=== PATIENT | male | born 1945 | race Caucasian/White ===

== ENCOUNTER 2022-12-16 07:38 | Outpatient (CLI) | payer OTHER, SELFPAY ==
--- OUTSIDE RECORDS SUMMARY | 2022-12-16 07:40 | XMS_ITS | Continuity of Care Document ---
Author Name Unknown Organization Z [facility] Address [address] [place] [address] Phone Care Team Providers Care School Manager Name Role Phone TCSC, Miscellaneous Unavailable Unavailable Advance Directives Directive Yes / No Effective Date File Name No Information Encounters Encounter Description Practice Location Reason(s) For Visit Diagnoses Date Provider Providers Copied on Encounter Z [facility], [address], [place], [address], [place] tel:[phone] [facility] [place] No Information [facility] Miscellan eous. [address], [address], [place], [place], [id number] , [place]. tel:[phone] Family History Family Member Type Diagnosis Age At Onset No Information Payers Payer name Insurance type Covered libertarian ID Authoriza tion(s) No Information Social History Type Description Quantity Date Captured Comments Sex Male Smoking Status No Information Chief Complaint And Reason For Visit No Information Reason For Referral Reason For Referral No Information History Of Present Illness Encounter Date Complaint History Of Prese nt Illness No Information Functional Status Date Functional Assessmen t No Information Instructions Date Instruction Additional Infor mation No Information Assessments Type Assessment Date No Information Patient Care Teams Name Effective Dates (start - stop) Status Members No Information
--- NOTE | 2022-12-16 09:00 | CRLHL7_ITS ---
For Patients: As a result of the Cures Act, medical imaging exams and procedure reports are released immediately into your electronic medical record. You may view this report before your referring provider. If you have questions, please contact your health care provider. INDICATION: Lung cancer screening. History of smoking. High risk patient with greater than 20 pack-year smoking history. TECHNIQUE: Low-dose lung cancer screening non-contrast CT chest. Dose reduction techniques were used. COMPARISON: None. FINDINGS: NODULES: 2 millimeter calcified granuloma in the left lung apex. Subpleural ill-defined nodular density left upper lobe measuring 5.3 millimeters, 3/49. Other scattered tiny granulomas are present bilaterally measuring 1 millimeter or less. Small area of focal scarring adjacent to the right major fissure right lower lobe. LUNGS AND PLEURA: COPD/emphysema. MEDIASTINUM: No adenopathy. Atherosclerotic changes. CORONARY ARTERY CALCIFICATION: Present. LIMITED UPPER ABDOMEN: Atherosclerotic changes. MUSCULOSKELETAL: Severe degenerative changes lower cervical spine. There is no fracture IMPRESSION: Bilateral pulmonary nodules. 5.3 millimeters subpleural ill-defined a nodular density left upper lobe. LUNG-RADS CATEGORY: 2: Benign. RADIOLOGIST RECOMMENDATION: Continue annual screening with low-dose CT chest in 12 months. Please note that all CT scans at this facility use dose modulation, iterative reconstruction, and/or weight-based dosing when appropriate to reduce radiation dose to as low as reasonably achievable. Dictated by Elmo Buckley MD @ 12/17/2022 12:04:09 PM (Electronically Signed)
== END 2022-12-16 07:39 | disposition home or self-care (01) ==
LOC: CT 07:39
PROVIDERS: PCP Nurse Practitioner Family; Visit Provider Nurse Practitioner Family
DX: Z12.2 Encounter for screening for malignant neoplasm of respiratory organs (principal); F17.200 Nicotine dependence, unspecified, uncomplicated
CPT/HCPCS: 71271

== ENCOUNTER 2023-12-26 07:26 | Outpatient (CLI) | payer OTHER, SELFPAY ==
--- OUTSIDE RECORDS SUMMARY | 2023-12-26 07:29 | XMS_ITS | Referral Summary ---
Author Organization [facility] Address [address] [place] [address] Care Team Providers Care Sample Paster Name Role Phone Elsewhere, Pcp Primary Care Provider Unavailabl e Source Comments Patient records contain information from all sites at [facility]. For routine questions regarding patient records, call [phone] during business hours, M-F 8:00 AM - 5:00 PM Central Time. 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 3 Active atorvastatin (for_LIPITOR) 80 mg tablet Take 80 mg by mouth daily. Active metoprolol tartrate (for_LOPRESSOR) 50 mg tablet Take 50 mg by mouth 2 (two) times a day. Take 1/2 tab twice a day Active clopidogrel (for_PLAVIX) 75 mg tablet Take 75 mg by mouth daily. Active cholecalciferol (for_VITAMIN D3) 1,000 Unit tablet Take 1,000 Units by mouth daily. Active fluticasone propion-salmeter oL (Advair Diskus) 100-50 mcg/actuation diskus inhaler Inhale 1 puff 2 (two) times a day. 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 22 g 4 Active predniSONE (DELTASONE) 20 mg tablet Take 2 tablets (40 mg total) by mouth daily. 10 tablet 4 Active doxycycline monohydrate (MONODOX) 100 mg capsule Take 1 capsule (100 mg total) by mouth 2 (two) times a day. 28 capsule 4 Active latanoprost 0.005 % drops, emulsion Administer 1 drop into both eyes at bedtime. 3 Active dorzolamide-naz loL (COSOPT) 22.3-6.8 mg/mL ophthalmic solution Administer 1 drop into both eyes 2 (two) times a day. 3 Active nicotine polacrilex (NICORETTE) 2 mg gum Chew 2 mg as needed for smoking cessation. 3 Active sennosides (SENOKOT) 8.6 mg tablet Take 2 tablets by mouth 2 (two) times a day. 8 Active atorvastatin (LIPITOR) 80 mg tablet Take 80 mg by mouth daily. 3 Active cholecalciferol, vitamin D3, 25 mcg (1,000 Unit) tablet Take 25 mcg by mouth daily. 8 Active metoprolol tartrate (LOPRESSOR) 50 mg tablet Take 25 mg by mouth 2 (two) times a day. 3 Active Active Problems No known active problems Immunizations Name Administration Dates Next Due SARS-COV-2 (COVID-19) - PFIZ ER (Discontinued)(12 years or older) 02/11/2021 Social History Tobacco Use Types Packs/Day Years Used Date Smoking Tobacco: Every Day Cigarettes 0.5 25 Smokeless Tobacco: Never Tobacco Cessation:Ready to Q uit: No; Counseling Given: Yes Alcohol Use Standard Drinks/Week Comments Yes 3 (1 standard drink = 0.6 oz pur e alcohol) Nutrition Answer Date Recorded Nutrition: EVOO Fat Source 13 10/29 Nutrition: Servings of Fruits/Vegetables per Day Not on file 10/30/2019 Dental Answer Date Recorded Dental: Regular Dentist Unknown 04/15/19 21 Sex and Gender Information Value Date Recorded Sex Assigned at Not on file 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 Gender Identity Not on file Sexual Orientation Not on file Last Filed Vital Signs Vital Sign Reading Time Taken Comments Blood Pressure 138/78 07/06/2023 9:10 PM CDT Pulse 76 07/06/2023 9:10 PM CDT Temperature 36.7 ??C (98.1 ??F) 07/06/2023 9:10 PM CD T Respiratory Rate 18 07/06/2023 9:10 PM CDT Oxygen Saturation 97% 07/06/2023 9:10 PM CDT Inhaled Oxygen Concentration - - Weight 54 kg (119 lb 0.8 oz) 07/06/2023 9:10 PM CDT Height 172.7 cm (5' 8) 12/18/2016 11:17 PM CDT Body Mass Index 18.1 12/18/2016 11:17 PM CDT Plan of Treatment Not on file Insurance [employer] Care Teams Sample Paster Relationship Specialty Start Date End Date Elsewhere, Pcp PCP - General Internal Medicine 12/18/16
--- OUTSIDE RECORDS SUMMARY | 2023-12-26 07:29 | XMS_ITS | Clinical Summary ---
Author Organization [facility] Address [address] [place] [address] Care Team Providers Care Skip Operator Name Role Phone Elsewhere, Pcp Primary Care Provider Unavailabl e Source Comments Patient records contain information from all sites at [facility]. For routine questions regarding patient records, call [phone] during business hours, M-F 8:00 AM - 5:00 PM Central Time. Record requests for emergency care only can be directed to [phone] at any time.[facility] Allergies Active Allergy Reactions Criticality Noted Date [...] day. 180 each 3 01/26/2023 12:[address] MAGISTRATE 3 Active mupirocin (BACTROBAN) 2 % ointment [...] on file Legal Sex Male 6:[address] MAGISTRATE Gender Identity Not on file Sexual Orientation [...] 12/18/2016 11:17 PM CDT Plan of Treatment Health Maintenance Due Date Last Done Comments Hepatitis C Screening 1945 Zoster Vaccines (1 of 2) 1996 RSV vaccine - (32-36 weeks) or 60+ years (1 - 1-dose 75+ series) 2021 Depression Screening (Annual PHQ-2) 02/14/2023 Fall Risk Screen (Annual) 02/14/2023 COVID-19 Vaccine (4 - 2023- season) 2023 02/11/2021, 05/15/2020, 04/24/2020 Influenza Vaccine (#1) 2023 DTaP,Tdap,and Td Vaccines (4 - Td or Tdap) 04/20/2033 04/21/2023, 11/24/2016, 09/07/2013, Additional history exists Pneumococcal vaccine (65+ years) Completed 2017, 12/16/2015 IPV Vaccines Aged Out No longer eligi ble based on patient's age to complete this topic Insurance [employer] Care Teams Skip Operator Relationship Specialty Start Date End Date Elsewhere, Pcp PCP - General Internal Medicine 12/18/16
--- OUTSIDE RECORDS SUMMARY | 2023-12-26 07:30 | XMS_ITS | Clinical Summary ---
Author Organization [facility] Address [place], [place] [address] Care Team Providers Care Med Spa Manager Name Role Phone Pcp, No Primary Care Provider Unavailabl e Social History Tobacco Use Types Packs/Day Years Used Date Smoking Tobacco: Never Assessed Sex and Gender Information Value Date Recorded Sex Assigned at Not on file Gender Identity Not on file Sexual Orientation Not on file Plan of Treatment Health Maintenance Due Date Last Done Comments Tdap 1957 Depression screening for age 12+ 1958 BMI (ht and wt on same day) for age 18+ 1964 Hepatitis C screening for age 18-79 1964 Tetanus booster 1966 Zoster (shingles) series for age 50+ (1 of 2) 08/12/18 97 Pneumococcal series for age 65+ (1 of 1 - PCV) 012 RSV vaccine for adults or pr egnancy (1 - 1-dose 75+ series) 2021 COVID-19 vaccine series ( - 2023-25 season) 4 Influenza for age 65+ 10/16/2023 Care Teams Med Spa Manager Relationship Specialty Start Date End Date Pcp, No . PCP - General 02/03/10
--- OUTSIDE RECORDS SUMMARY | 2023-12-26 07:30 | XMS_ITS ---
Author Organization [facility] Address [address] [place] [address] Care Team Providers Care Grinding And Polishing Laborer Name Role Phone Unavailable Unavailable Unavailable Surgery Details Not on file Complications Check Surgery Details section. Procedure Estimated Blood Loss Check Surgery Details section. Procedure Findings Check Surgery Details section. Procedure Specimens Taken Check Surgery Details section.
--- OUTSIDE RECORDS SUMMARY | 2023-12-26 07:30 | XMS_ITS | Continuity of Care Document ---
Author Organization Z [facility] Address [address] [place] [address] Phone Care Team Providers Care Patternmaker Plaster And Plastic Name Role Phone TCSC, Miscellaneous Unavailable Unavailable Advance Directives Directive Yes / No Effective Date File Name No Information Encounters Encounter Description Practice Location Reason(s) For Visit Diagnoses Date Provider Providers Copied on Encounter Z [facility], [address], [place], [address], [place] tel:[phone] [facility] [place] No Information [facility] Miscellan eous. [address], [address], [place], [place], [id number] , [place]. tel:[phone] Family History Family Member Type Diagnosis Age [...]
--- NOTE | 2023-12-26 08:00 | CRLHL7_ITS ---
For Patients: As a result of the Century Cures Act, medical imaging exams and procedure reports are released immediately into your electronic medical record. You may view this report before your referring provider. If you have questions, please contact your health care provider. INDICATION: Lung cancer screening. TECHNIQUE: Low-dose lung cancer screening non-contrast CT chest. Dose reduction techniques were used. COMPARISON: CT 12/16/2022 FINDINGS: NODULES: Slightly ill-defined nodular density peripheral left upper lobe stable. LUNGS AND PLEURA: Emphysema. MEDIASTINUM: Normal. CORONARY ARTERY CALCIFICATION: Present. LIMITED UPPER ABDOMEN: Normal. MUSCULOSKELETAL: Unremarkable IMPRESSION: 1. Subpleural irregular nodular density left upper lobe is unchanged. No new findings are seen. LUNG-RADS CATEGORY: 2: Benign. RADIOLOGIST RECOMMENDATION: Continue annual screening with low-dose CT chest in 12 months. Please note that all CT scans at this facility use dose modulation, iterative reconstruction, and/or weight-based dosing when appropriate to reduce radiation dose to as low as reasonably achievable. Dictated by Carly Ambrosio MD @ 12/26/2023 10:03:37 AM (Electronically Signed)
== END 2023-12-26 07:27 | disposition home or self-care (01) ==
PROVIDERS: PCP Nurse Practitioner Family; Visit Provider Nurse Practitioner Family
DX: Z12.2 Encounter for screening for malignant neoplasm of respiratory organs (principal); R91.1 Solitary pulmonary nodule; F17.210 Nicotine dependence, cigarettes, uncomplicated
CPT/HCPCS: 71271

== ENCOUNTER 2025-01-21 08:21 | Outpatient (CLI) | payer OTHER, SELFPAY | END 2025-01-21 08:22 | disposition home or self-care (01) | PROVIDERS: PCP Nurse Practitioner Family; Visit Provider Nurse Practitioner Family | DX: E78.5 Hyperlipidemia, unspecified (principal); R63.4 Abnormal weight loss; Z12.5 Encounter for screening for malignant neoplasm of prostate; Z13.0 Encounter for screening for diseases of the blood and blood-forming organs and certain disorders involving the immune mechanism | CPT/HCPCS: 80053; 80061; 81001; 84443; 85025; 85651; 86140; 87086; G0103 ==

== ENCOUNTER 2025-01-29 11:59 | Outpatient (CLI) | payer OTHER, SELFPAY ==
--- NOTE | 2025-01-29 14:00 | CRLHL7_ITS ---
For Patients: As a result of the Century Cures Act, medical imaging exams and procedure reports are released immediately into your electronic medical record. You may view this report before your referring provider. If you have questions, please contact your health care provider. Indication: UNEXPLAINED WT LOSS Technique: CT Chest/Abd/Pelvis 52CC ISOVUE 370 INTRAVENOUS CONTRAST AND WATER PREP Please note that all CT scans at this facility use dose modulation, iterative reconstruction, and/or weight-based dosing when appropriate to reduce radiation dose to as low as reasonably achievable. Comparison: CT chest 12/26/2023 Findings: In the chest, dense vascular calcifications are present. No adenopathy in the mediastinum, catarino or axilla. COPD/emphysema. No infiltrate, edema, effusion, pneumothorax or suspicious pulmonary nodule. No fracture. Degenerative changes. No suspicious osseous lesion. In the abdomen, sub cm left hepatic lobe cysts are present. No suspicious intrahepatic mass. The spleen is within normal limits. Extensive atherosclerotic changes. Chronic calcifications associated with the uncinate process of the pancreas. Stable ectasia of the pancreatic duct within the pancreatic head. No hydronephrosis. No adrenal nodule. No renal mass. No biliary obstruction. No upper abdominal adenopathy. In the pelvis, calcifications in the bladder are noted on the right measuring 6.5 millimeters. Prostate calcifications are present. No bowel obstruction or free air. No free fluid. No adenopathy. Bilateral common iliac stents. Impression: No suspicious findings in the chest, abdomen or pelvis. COPD/emphysema. Sub cm intrahepatic cysts. Sequela of chronic pancreatitis to the uncinate process with chronic pancreatic duct ectasia. No evidence of a suspicious pancreatic mass. Bladder stones without hydronephrosis. No bladder wall thickening. Please note that all CT scans at this facility use dose modulation, iterative reconstruction, and/or weight-based dosing when appropriate to reduce radiation dose to as low as reasonably achievable. Dictated by Elmo Buckley MD @ 01/30/2025 9:05:34 AM (Electronically Signed)
== END 2025-01-29 12:00 | disposition home or self-care (01) ==
LOC: CT 12:00
PROVIDERS: PCP Nurse Practitioner Family; Visit Provider Nurse Practitioner Family
DX: R63.4 Abnormal weight loss (principal); J44.9 Chronic obstructive pulmonary disease, unspecified; K86.1 Other chronic pancreatitis; N21.0 Calculus in bladder; K76.89 Other specified diseases of liver
CPT/HCPCS: 71260; 74177; Q9967